=== PATIENT | female | born 1945 | race Caucasian/White ===

== ENCOUNTER → 2024-04-08 11:41 | Outpatient (REF) | payer MEDICARE, SELFPAY ==
[2024-04-08 15:47] LABS: Blood Urea Nitrogen 16 mg/dl (7-17); Calcium 9.5 mg/dl (8.4-10.2); Carbon Dioxide 30 mmol/L (22-30); Chloride 102 mmol/L (98-107); Glucose 82 mg/dl (70-99); Potassium 4.6 mmol/L (3.5-5.1); Sodium 143 mmol/L (135-145); eGFR > 60.00
== END ==
LOC: HWLAB 11:41
PROVIDERS: ATTENDING PHYSICIAN Internal Medicine Gastroenterology; FAMILY PHYSICIAN Internal Medicine
DX: R14.0 Abdominal distension (gaseous) (principal)
CPT/HCPCS: 36415; 80048

== ENCOUNTER → 2024-04-15 09:42 | Outpatient (REF) | payer MEDICARE, SELFPAY | LOC: HWRAD 09:42 | PROVIDERS: ATTENDING PHYSICIAN Internal Medicine Gastroenterology; FAMILY PHYSICIAN Internal Medicine; OTHER PHYSICIAN Obstetrics & Gynecology | DX: R14.0 Abdominal distension (gaseous) (principal) | CPT/HCPCS: 74177; Q9967 ==

== ENCOUNTER → 2024-12-09 13:05 | Outpatient (REF) | payer MEDICARE, SELFPAY ==
[2024-12-10 23:20] LABS: IgA 335 mg/dl (70-400)
== END ==
LOC: HWLAB 13:05
PROVIDERS: ATTENDING PHYSICIAN Internal Medicine Gastroenterology; FAMILY PHYSICIAN Internal Medicine
DX: R19.4 Change in bowel habit (principal)
CPT/HCPCS: 36415; 74018; 82784; 83516; 86231

== ENCOUNTER 2025-06-26 17:24 | Emergency (ER) | payer MEDICARE, SELFPAY ==
[2025-06-26 17:29] VITALS: BP 121/75
[2025-06-26 18:05] LABS: Hematocrit 39.4 % (37.0-47.0); Hemoglobin 13.2 g/dL (12.0-16.0); Mean Corp Hgb Conc. 33.5 g/dL (33.0-37.0); Mean Corpuscular Volume 94.3 fL (81.0-99.0); Nucleated Red Blood Cells % 0 %; Platelet Count 234 10^3/uL (130-400); Red Cell Dist. Width 13.1 % (11.5-14.5)
[2025-06-26 18:22] LABS: Troponin I 0.016 ng/ml
[2025-06-26 18:25] LABS: ALT (SGPT) 18 U/L (0-35); AST (SGOT) 24 U/L (14-36); Albumin 4.4 g/dl (3.5-5.0); Alkaline Phosphatase 70 U/L (38-126); Blood Urea Nitrogen 12 mg/dl (7-17); Calcium 9.3 mg/dl (8.4-10.2); Carbon Dioxide 29 mmol/L (22-30); Chloride 102 mmol/L (98-107); Glucose 91 mg/dl (70-99); Potassium 5.2 mmol/L (3.5-5.1); Sodium 136 mmol/L (135-145); Total Protein 7.2 g/dl (6.3-8.2); eGFR > 60.00
[2025-06-26 18:54] VITALS: BP 142/68
[2025-06-26 19:00] VITALS: BP 140/60
--- NOTE | 2025-06-26 19:12 | ED.GENMED ---
History of Present Illness
General
Chief Complaint: Chest Pain
Time Seen by Provider: 06/26/25 19:01
History of Present Illness
History of Present Illness:
80-year-old male female presents to the emergency department for evaluation of chest pain that began yesterday upon awakening. She describes it as indigestion like symptoms. No associated fever, chills, sweats, shortness of breath, nausea, or
vomiting. She has taken numerous [id number] antacids without relief. No exertional component no positional component. Does not change after p.o. intake. Follows with cardiology at [facility] due to a family history of prolonged QT syndrome
however she does not carry the gene for this, had a previous catheterization approximately 12 years ago that was reportedly normal. Non-smoker
Review of Systems
Review of Systems
Allergies reviewed?: Yes
All Other Systems: ROS reviewed and negative except as documented in HPI and ROS
Phy Exam
Physical Exam
Physical Exam:
GEN: Well appearing, NAD, WDWN
HEENT: Oral mucosa moist, no scleral icterus
Cardiac: Regular rate and rhythm, no murmur
Lung: No respiratory distress, no tachypnea, lungs clear to auscultation
MSK: No gross deformity or injuries
Skin: Good color, no pallor or jaundice, no rashes
Neuro: AO x3, moves all extremities freely
Psych: Calm, cooperative
Scores
Heart Score for Chest Pain Patients
STEMI patient?: No
History: Slightly or Non-Suspicious
ECG: Nonspecific Repolarization
Age: >/= 65 years
Risk Factors: 1 or 2 Risk Factors
Troponin: </= Normal Limit
Heart Score for Chest Pain Patients: 4
Heart Score Risk: 20.3% MACE over next 6 weeks
Course
Orders/Labs/Results
Orders:
Orders
06/26/25
ECG [Electrocardiogram (*1)] Urgent
Reason for Study: Chest Pain
06/26/25 17:25
EKG- Treatment ONCE
06/26/25 17:47
Complete Blood Count/With Diff Urgent
Comprehensive Metabolic Panel Urgent
Lipase Urgent
Troponin I Urgent
06/26/25 19:05
Add On- LAB Urgent
Tests Added?: lipase
06/26/25 19:36
Electrocardiogram (*1) Urgent
Reason for Study: Chest Pain
EKG- Treatment ONCE
CR Chest - 2 Views Urgent
Comment:
Reason For Exam: chest pain
06/26/25 20:11
Troponin I Urgent
06/26/25 20:49
Mag Hydrox/Al Hydrox/Simeth [Maalox] 30 ml Phenobarb/Hyoscy/Atropine/Scop [] 10 ml Viscous Lidocaine 2% [Xylocaine Viscous Cup] 10 ml PO NOW
06/26/25 21:08
Mag Hydrox/Al Hydrox/Simeth [Maalox] 30 ml .ROUTE .STK-MED ONE
Phenobarb/Hyoscy/Atropine/Scop [] 10 ml .ROUTE .STK-MED ONE
Viscous Lidocaine 2% [Xylocaine Viscous Cup] 15 ml .ROUTE .STK-MED ONE
06/26/25 21:45
Pantoprazole [Protonix IV] 40 mg IV NOW STA
06/26/25 22:09
Pantoprazole [Protonix] 40 mg PO NOW STA
Abnormal Lab Results
06/26/25
17:47
WBC 11.6 H 10^3/uL
(4.8-10.8)
RBC 4.18 L 10^6/uL
(4.20-5.40)
MCH 31.6 H pg
(27.0-31.0)
Absolute Neuts (auto) 7.5 H 10^3/uL
(1.4-6.5)
Absolute Monos (auto) 1.3 H 10^3/uL
(0.1-0.6)
Monocytes % 11.1 H %
(1.7-9.3)
Potassium 5.2 H mmol/L
(3.5-5.1)
06/26/25 17:47
06/26/25 17:47
Vital Signs
Initial and Last Documented VS:
Initial Vital Signs
Temp Pulse Resp BP Pulse Ox
97.5 F 59 18 121/75 98
06/26/25 17:29 06/26/25 17:29 06/26/25 17:29 06/26/25 17:29 06/26/25 17:29
Last Documented Vital Signs
Temp Pulse Resp BP Pulse Ox
98.5 F 58 15 97/61 99
06/26/25 22:14 06/26/25 22:14 06/26/25 22:14 06/26/25 22:14 06/26/25 22:14
MDM/Problems Addressed
MDM/Problems Addressed:
Patient's pain sounds much more GI related than it is cardiac. Her initial and repeat cardiac enzymes were reassuring, EKG does show subtle ST depressions laterally however her clinical presentation is not highly suggestive of ACS. Will encourage
increased dose of PPI and outpatient follow-up with gastroenterology
Comment
Comment:
EKG independently interpreted by me shows a normal sinus rhythm at a rate of [address] depressions laterally and T wave flattening inferiorly, no priors for comparison
*Pulse Oximetry
SaO2: 98
Oxygen Mode of Delivery: Room air
Patient hypoxic: no
*Critical Care Note
Total Time (30-74mins, 75-104mins- exclusive of procedures): Not Applicable
ED Attending Note
-
Portions of this chart may have been created with voice recognition software.� Occasional wrong word or��sound alike� substitutions may have occurred due to the inherent limitations of voice recognition software.
Discharge Plan
Departure
Patient Disposition: Home (Routine Discharge)
Date of Disposition: 06/26/25
Time of Disposition: 21:44
Patient with high blood pressure during this ER visit?: No
Discharge Problem:
Chest pain due to GERD
Instructions: Acid reflux and GERD in adults - ED (DC)
Referrals:
Hannah Carey, DO [Family Provider, Internal Medicine]
Activity Restrictions/Additional Instructions:
Increase her Protonix to twice daily for 1 week
Eat smaller meals and take a longer time to digest
Do not lay down for at least 1 hour after eating
Follow-up with your GI doctor
Interventions
Interventions:
*Risk Screen - Suicide Last Done: 06/26/25 17:29
*General Assessment Last Done: 06/26/25 19:16
*Neglect/Abuse Screening Last Done: 06/26/25 19:16
*ED- Fall Risk Assessment Last Done: 06/26/25 19:16
*ED COVID-19 Vaccine History Last Done: 06/26/25 19:16
*ED Influenza Vaccine History Last Done: 06/26/25 19:16
*Nursing Disposition Last Done: 06/26/25 22:14
ED- Cardiac Assessment Last Done: 06/26/25 19:15
Discharge Date and Time
Discharge Date/Time: 06/26/25 22:28
Print Language: LATVIAN
[2025-06-26 19:15] VITALS: BMI 26.6
[2025-06-26 19:42] LABS: Lipase 110 U/L (23-300)
[2025-06-26 20:42] LABS: Troponin I 0.015 ng/ml
[2025-06-26] MEDS: MAALOX 30 PO (21:16)
[2025-06-26] MEDS: PROTONIX 40 MG PO (22:13)
[2025-06-26 22:14] VITALS: BP 97/61
== END 2025-06-26 22:28 | disposition home or self-care (01) ==
LOC: EMR 17:24
PROVIDERS: Emergency Medicine; Physician Assistant; EMERGENCY PHYSICIAN Emergency Medicine; FAMILY PHYSICIAN Internal Medicine; REFERRING PHYSICIAN Internal Medicine
DX: K21.9 Gastro-esophageal reflux disease without esophagitis (principal)
CPT/HCPCS: 99284; 71046; 80053; 83690; 84484; 85025; 93005